=== PATIENT | male | born 1980 | race Caucasian/White ===

== ENCOUNTER 2019-04-16 18:09 | Outpatient (CLI) | payer OTHER ==
--- NOTE | 2019-04-16 21:57 | MRI Report ---
Reason: TESTICULAR HYPOFUNCTION Procedure Date: 04/16/2019 Accession Number: [id number] / [id number] Procedure: MRI - Brain W/O CPT Code: FULL RESULT: EXAM: MRI BRAIN WITHOUT CONTRAST EXAM DATE: 04/16/2019 08:11 PM. CLINICAL HISTORY: 39-year-old presenting with testicular hypofunction. Evaluate for intracranial pathology. COMPARISON: None. TECHNIQUE: Multiplanar, multisequence T1-weighted and fluid-sensitive MR sequences of the brain were performed. Sequences optimized for routine evaluation. Other: None. IV Contrast: None. FINDINGS: Brain Volume: Normal for age. Parenchyma/Dura: No mass, acute infarct or hemorrhage. No white matter lesions identified. Ventricles/Cisterns: No hydrocephalus. No abnormal extra-axial fluid collection or hemorrhage. Orbits: Symmetric and unremarkable. Sella Turcica: The pituitary gland, cavernous sinuses, suprasellar cistern and optic chiasm are unremarkable. IAC: Symmetric and unremarkable. Vasculature: Normal signal flow void is seen in the major arterial structures at the skull base. Sinuses: Small bilateral maxillary mucosal retention cysts versus polyps. Small mucosal retention cyst versus polyp of the pneumatized left sphenoid sinus recess. Mucosal thickening in the paranasal sinuses. Mastoid air cells and middle ear cavities appear clear. Bones: No focal pathologic appearing marrow signal changes. Other: None. IMPRESSION: 1. No definite acute intracranial pathology seen; specifically, no acute infarct, acute intracranial hemorrhage, mass, hydrocephalus, or midline shift. 2. No definite white matter lesions seen. RADIA
== END 2019-04-16 18:10 | disposition home or self-care (01) ==
LOC: DI 18:09
PROVIDERS: ATTEND General Practice
DX: E29.1 Testicular hypofunction (principal)
CPT/HCPCS: 70551

== ENCOUNTER 2019-09-30 14:00 | Emergency (ER) | payer OTHER ==
[2019-09-30 14:08] VITALS: BP 175/97
--- NOTE | 2019-09-30 14:23 | ED Physician Documentation ---
History of Present Illness - Stated complaint Stated Complaint: MALE - Chief complaint Chief Complaint: General - History obtained from History obtained from: Patient (39-year-old gentleman, active duty in the [employer]. He has chronic diarrhea and today it was bloody after straining but he has been constipated. He does note mucousy stool sometimes. No weight loss.) Review of Systems Constitutional: denies: Fever, Chills, Myalgias, Fatigue, Weight Loss, Sweats GI: denies: Abdominal Pain, Nausea, Vomiting PD PAST MEDICAL HISTORY - Present Medications Home Medications: Ambulatory Orders Medication Instructions Recorded Confirmed Testosterone Cypionate 0 mg IM DAILY 09/30/19 09/30/19 [Depo-Testosterone] - Allergies Allergies/Adverse Reactions: Allergies Allergy/AdvReac Type Severity Reaction Status Date / Time No Known Drug Allergies Allergy Verified 09/30/19 14:04 PD ED PE NORMAL - Vitals Vital signs reviewed: Yes - General General: Alert and oriented X 3, No acute distress - Abdomen Abdomen: Normal bowel sounds, Soft, Non tender - Rectal Rectal: Other (no hemorrhoid) - Back Back: No CVA TTP, No spinal TTP - Derm Derm: Normal color, Warm and dry - Neuro Neuro: Alert and oriented X 3, Normal speech Results - Vitals Vitals: Vital Signs - 24 hr 09/30/19 14:04 Temperature 36.5 C Heart Rate 68 Respiratory 14 Rate Blood Pressure 175/97 H O2 Saturation 93 Oxygen O2 Source Room air - Labs Labs: Laboratory Tests 09/30/19 09/30/19 14:25 14:25 WBC 7.3 RBC 5.29 Hgb 16.7 Hct 49.1 MCV 92.8 MCH 31.6 H MCHC 34.0 RDW 14.4 Plt Count 210 MPV 9.7 Neut # (Auto) 3.6 Lymph # (Auto) 2.2 [place] # (Auto) 0.8 Eos # (Auto) 0.5 Baso # (Auto) 0.1 Absolute Nucleated RBC 0.00 Nucleated RBC % 0.0 Sodium 138 Potassium 3.8 Chloride 103 Carbon Dioxide 23 Anion Gap 12.0 BUN 12 Creatinine 1.0 Estimated GFR (MDRD) 83 L Glucose 95 Calcium 9.8 Total Bilirubin 1.0 AST 27 ALT 29 Alkaline Phosphatase 41 L Total Protein 7.6 Albumin 4.8 Globulin 2.8 Albumin/Globulin Ratio 1.7 Lipase 35 PD MEDICAL DECISION MAKING - ED course ED course: 39-year-old gentleman with what sounds like may be inflammatory bowel disease, will need follow-up colonoscopy and this was discussed with him. Departure - Departure Disposition: 01 Home, Self Care Clinical Impression: Bloody stools, Chronic diarrhea Condition: Good Instructions: ED Hematochezia Stable Comments: Your blood work looks fine, given your symptoms and wondering if you have some form of inflammatory bowel disease examples include Crohn's disease and ulcerative colitis. Talk with your doctor about setting you up for a colonoscopy. Return for new or worsening symptoms. Your blood pressure was elevated today on check into the emergency department. This does not mean that you have hypertension, it is a common phenomenon to come to the emergency department and have elevated blood pressure. I recommend that you see your primary care physician within the week to have it rechecked when you are feeling better.
[2019-09-30 14:30] LABS: BASOPHILS # (AUTO) 0.1 10^3/uL (0.0-0.1); BASOPHILS % (AUTO) 0.8 %; EOSINOPHILS # (AUTO) 0.5 10^3/uL (0.0-0.7); EOSINOPHILS % (AUTO) 6.6 %; HGB - HEMOGLOBIN 16.7 g/dL (14.0-18.0); LYMPHOCYTES # (AUTO) 2.2 10^3/uL (1.5-3.5); LYMPHOCYTES % (AUTO) 30.9 %; MEAN CORPUSCULAR HEMOGLOBIN 31.6 pg (27.0-31.0); MEAN CORPUSCULAR VOLUME 92.8 fL (80.0-94.0); MEAN PLATELET VOLUME 9.7 fL (7.4-11.4); MONOCYTES # (AUTO) 0.8 10^3/uL (0.0-1.0); MONOCYTES % (AUTO) 11.3 %; NEUTROPHILS # (AUTO) 3.6 10^3/uL (1.5-6.6); NEUTROPHILS % (AUTO) 50.1 %; PLT - PLATELET COUNT 210 10^3/uL (130-450); RED BLOOD COUNT 5.29 10^6/uL (4.70-6.10); RED CELL DISTRIBUTION WIDTH 14.4 % (12.0-15.0); WHITE BLOOD COUNT 7.3 x10^3/uL (4.8-10.8)
[2019-09-30 14:46] LABS: ALBUMIN 4.8 g/dL (3.2-5.5); ALBUMIN/GLOBULIN RATIO 1.7 (1.0-2.2); CALCIUM 9.8 mg/dL (8.5-10.3); TOTAL PROTEIN 7.6 g/dL (6.7-8.2)
== END 2019-09-30 14:54 | disposition home or self-care (01) ==
LOC: ED 14:00
DX: K92.1 Melena (principal); K52.9 Noninfective gastroenteritis and colitis, unspecified; R03.0 Elevated blood-pressure reading, without diagnosis of hypertension
CPT/HCPCS: 36415; 80053; 83690; 85025; 99283; 99284